=== PATIENT | male | born 2000 | race Hispanic/Latino ===

== ENCOUNTER 2022-09-25 22:17 | Emergency (ER) | payer OTHER | END 2022-09-25 23:58 | disposition home or self-care (01) | LOC: CSHERS 22:17 | DX: S06.0X0A Concussion without loss of consciousness, initial encounter (principal); F17.290 Nicotine dependence, other tobacco product, uncomplicated; V29.99XA Rider (driver) (passenger) of other motorcycle injured in unspecified traffic accident, initial encounter | CPT/HCPCS: 70450 ==